=== PATIENT | female | born 1990 | race African-American/Black ===

== ENCOUNTER 2016-12-27 14:51 | Emergency (ER) | payer MEDICAID ==
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
--- OUTSIDE RECORDS SUMMARY | 2016-12-27 15:37 | XMS REPORT | Continuity of Care Document ---
:1990 Author Organization [facility] ([facility]) Address [address] [place] [id number] Phone [phone] Care Team Providers Name Role Phone Akhil Friend Primary Care Provider [phone] Source Comments This disclosure is being made pursuant to the Care Everywhere program, applicable federal and state laws, and may not contain all informaitonavailable regarding this patient.[facility] ([facility]) Active Allergies and Adverse Reactions Not on File Current Medications Not on file Active Problems Not on file Social History Tobacco Use Types Packs/Day Years Used Date Never Assessed Plan of Care Health Maintenance Due Date Last Done Comments Hepatitis B Vaccine (1 of 3 - Primary Series) 1988 Tdap Vaccine 1999 Cervical Cancer Screening 2006 Lipid Disorder Screening 2006 MMR Vaccine 2006 Td Vaccine 2006 Varicella Vaccine (1 of 2 - Adult - No Evidence of 2006 Immunity) Influenza Vaccine: Seasonal (#1) 05/16/2016 Results from Last 3 Months Not on file
[2016-12-27 16:55] VITALS: BP 129/80
== END 2016-12-27 16:56 | disposition home or self-care (01) ==
LOC: ER 14:51
DX: O99.342 Other mental disorders complicating pregnancy, second trimester (principal); F32.9 Major depressive disorder, single episode, unspecified; Z3A.18 18 weeks gestation of pregnancy

== ENCOUNTER 2017-05-13 15:46 | Inpatient (IN) | payer MEDICAID ==
[2017-05-13] MEDS ORDERED: RINGER'S SOLUTION,LACTATED 1,000 ML IV PRN ×2 (16:08→17:05)
[2017-05-13 16:42] LABS: Hematocrit 32.6 % (37.0-47.0); Hemoglobin 10.6 gm/dL (12.5-16.0); Mean Cell Volume 78.7 fl (78-100); Mean Corpuscular Hemoglobin 25.6 pg (27-31); Mean Corpuscular Hgb Conc 32.5 g/dl (32-36); Mean Platelet Volume 10.9 fl (6.0-9.5); Neutrophil # 5.6 K/mm3 (1.3-6.0); Neutrophil % 64.1 % (42-75.0); Platelet Count 198 K/mm3 (150-450); Red Blood Count 4.14 M/mm3 (4.2-5.4); Red Cell Distribution Width 15.3 % (11.5-14.0); White Blood Count 8.7 K/mm3 (4.0-10.5)
[2017-05-13] MEDS ORDERED: ONDANSETRON HCL/PF 2 MG/ML VIAL IV PRN ×2 (17:05→20:23)
[2017-05-13] MEDS ORDERED: OXYTOCIN/DEXTROSE 5%-WATER 30 UNITS/500 ML BAG IV ONE ×3 (17:05→21:00)
[2017-05-13] MEDS ORDERED: LIDOCAINE HCL 50 ML VIAL PERI PRN (17:05)
[2017-05-13 17:15] LABS: Urine Appearance Clear; Urine Bilirubin Negative (NEGATIVE); Urine Blood Negative /ul (NEGATIVE); Urine Color Yellow; Urine Ketone 50 mg/dL (NEGATIVE); Urine Protein Negative (NEGATIVE)
[2017-05-13 17:16] LABS: Urine Nitrite Negative (NEGATIVE); Urine RBC None Seen /hpf (0-5); Urine Urobilinogen Normal (NORMAL); Urine WBC 0-5 /hpf (0-5)
[2017-05-13 17:17] LABS: Urine Bacteria 1+
[2017-05-13 17:35] LABS: Cocaine Ur Negative (NEGATIVE); Urine Barbiturate Negative (NEGATIVE); Urine Benzodiazepines Negative (NEGATIVE); Urine Opiates Negative (NEGATIVE); Urine PCP Negative (NEGATIVE); Urine THC Negative (NEGATIVE)
[2017-05-13] MEDS ORDERED: RINGER'S SOLUTION,LACTATED 1,000 ML IV ONE (18:11)
[2017-05-13] MEDS ORDERED: DEXTROSE 5%-LACTATED RINGERS 1,000 ML IV PRN (18:11)
[2017-05-13] MEDS ORDERED: NALOXONE HCL 1 MG/1 ML SYRG IV PRN (20:23)
[2017-05-13] MEDS ORDERED: fentaNYL CITRATE/PF 50 MCG/ML AMPUL IT SCH (20:30)
--- NOTE | 2017-05-13 20:38 | OR ---
Anesthesia Pre Procedure Eval Date of Service: 05/13/17 Pre Procedure Evaluation: Last Vital Signs Temp 36.6 C 01/19/17 10:05 Pulse Resp BP 129/80 01/19/17 10:05 Pulse Ox Anesthesia Pre Procedure Evaluation Heart Rate: 98 Blood Pressure: 135/82 Temperature: 36.5 Respiratory Rate: 20 SaO2: 98 DATE: 05/13/2017 TIME: 2029 INDICATIONS: Active labor, with pain PAST MEDICAL HISTORY: Multipara patient in active labor requesting labor analgesia EXAM: Heart regular; lungs clear ASSESSMENT OF MEDICAL STATUS: Baby has descended to a point the patient is unable to sit or cooperate with position. Patient is quite uncomfortable however unable to get a neuraxial block. She did ask for IV pain medication but it was explained that that would affect the baby's respiration on delivery and she therefore declined any additional intervention. PLANNED PROCEDURE: Patient is obviously progressed to far for spinal or epidural and procedure is deferred. Home Medications: HOME MEDICATIONS Vit#96/Ferrous Fum/FA [ S] 1 tab PO DAILY 03/16/15 [Last Taken 03/16/15] Lurasidone HCl [Latuda] 20 mg PO DAILY #30 tab 12/27/16 [Last Taken Unknown] valACYclovir HCL [Valtrex] 1,000 mg PO DAILY 05/13/17 [Last Taken Unknown]
[2017-05-13] MEDS ORDERED: oxyCODONE HCL/ACETAMINOPHEN 1 TAB TABLET PO PRN (21:00)
[2017-05-13] MEDS ORDERED: BISACODYL 10 MG SUPP.RECT RC PRN (21:00)
[2017-05-13] MEDS ORDERED: GLYCERIN/WITCH HAZEL LEAF 40 APPL BOX TP PRN (21:00)
[2017-05-13] MEDS ORDERED: SENNOSIDES 8.6 MG TABLET PO PRN (21:00)
[2017-05-13] MEDS ORDERED: BENZOCAINE/MENTHOL 81 SPRAY CAN TP PRN (21:00)
[2017-05-13] MEDS ORDERED: HYDROCORTISONE 30 APPL TUBE TP PRN (21:00)
--- NOTE | 2017-05-13 21:01 | OR ---
Operative Report - Dictated Report Narrative: Spontaneous vaginal delivery of viable male at 2041 on 05/13/2017 with Apgars 9 and 9, weighing 3166 g in GRANT position. Cord clamping delayed approximately 1 minute Placenta delivered complete, intact, with three vessel cord Estimated blood loss: less than 50 ml Lacerations: First-degree vaginal laceration with no repair.
[2017-05-13] MEDS: oxyCODONE HCL/ACETAMINOPHEN 1 TAB TABLET PO PRN (21:27)
[2017-05-13] MEDS: IBUPROFEN 800 MG TABLET PO PRN (21:27)
[2017-05-14] MEDS: DOCUSATE SODIUM 100 MG CAPSULE PO SCH ×4 (06:48→20:18)
[2017-05-14] MEDS: IBUPROFEN 800 MG TABLET PO PRN ×2 (06:48→17:11)
[2017-05-14] MEDS: oxyCODONE HCL/ACETAMINOPHEN 1 TAB TABLET PO PRN ×2 (09:40→17:11)
[2017-05-15] MEDS: oxyCODONE HCL/ACETAMINOPHEN 1 TAB TABLET PO PRN ×3 (05:12→23:45)
[2017-05-15] MEDS: IBUPROFEN 800 MG TABLET PO PRN ×3 (05:12→23:44)
--- NOTE | 2017-05-15 09:03 | PN ---
Subjective - Date and Time Seen Date: 05/15/17 Time: 09:02 - seen yesterday at 1430 Objective - Vitals Vitals: Last Vital Signs Temp 36.7 C 05/14/17 23:50 Pulse 71 05/14/17 23:50 Resp 16 05/14/17 23:50 BP 123/74 05/14/17 23:50 Pulse Ox 98 05/14/17 23:50 Patient denies complaints. Lochia wnl Abdomen - soft, nontender Uterus - firm, at umbilicus - 1 No calf tenderness Impression: day #1 - s/p spontaneous vaginal delivery. Bipolar disorder-stable. Morbid obesity. Plan: Continue routine care
--- NOTE | 2017-05-15 09:04 | PN ---
Subjective - Date and Time Seen Date: 05/15/17 Time: 09:03 Objective - Vitals Vitals: Last Vital Signs Temp 36.7 C 05/14/17 23:50 Pulse 71 05/14/17 23:50 Resp 16 05/14/17 23:50 BP 123/74 05/14/17 23:50 Pulse Ox 98 05/14/17 23:50 Patient denies complaints. Lochia wnl Abdomen - soft, nontender Uterus - firm, at umbilicus - 2 No calf tenderness Impression: day #2 - s/p spontaneous vaginal delivery. Bipolar disorder-stable. Morbid obesity. Plan: Routine discharge instructions. Follow-up with psychiatrist if depression signs or symptoms develop.
[2017-05-15] MEDS: DOCUSATE SODIUM 100 MG CAPSULE PO SCH ×2 (10:03→21:12)
[2017-05-15 21:39] VITALS: BP 142/81
== END 2017-05-15 23:55 | disposition home or self-care (01) | DRG 774 ==
LOC: OBCLINIC 15:46 → OB 16:30 → MS 05-14 01:39
PROVIDERS: ADMIT Obstetrics & Gynecology; ATTEND Obstetrics & Gynecology
PROC: 10E0XZZ Delivery of Products of Conception, External Approach (ICD-10-PCS; principal; 2017-05-13)
PROC: 4A1HXCZ Monitoring of Products of Conception, Cardiac Rate, External Approach (ICD-10-PCS; 2017-05-13)
DX: O76 Abnormality in fetal heart rate and rhythm complicating labor and delivery (principal); O98.32 Other infections with a predominantly sexual mode of transmission complicating childbirth; O36.8130 Decreased fetal movements, third trimester, not applicable or unspecified; O70.0 First degree perineal laceration during delivery; A60.04 Herpesviral vulvovaginitis; Z79.899 Other long term (current) drug therapy; Z3A.38 38 weeks gestation of pregnancy; Z37.0 Single live birth